=== PATIENT | male | born 1965 | race Caucasian/White ===

== ENCOUNTER 2020-11-10 14:42 | Outpatient (CLI) | payer MEDICARE, SELFPAY ==
--- NOTE | ~2020-11-10 | XR_ITS ---
EXAMINATION: XR knee LT 2V DATE: 11/10/2020 15:19 INDICATION: Left knee pain. TECHNIQUE: 2 views of left knee were obtained. COMPARISON: None. FINDINGS: Bone alignment is normal. No fracture. There is mild osteoarthritis of patellofemoral mario rtment characterized by a tiny marginal osteophyte. No knee joint effusion. IMPRESSION: 1. Mild left knee osteoarthritis. Reviewed, dictated and finalized at location [facility]
== END 2020-11-10 14:43 | disposition home or self-care (01) ==
PROVIDERS: PCP Emergency Medicine; Visit Provider Emergency Medicine
DX: M17.12 Unilateral primary osteoarthritis, left knee (principal)
CPT/HCPCS: 73560

== ENCOUNTER 2022-03-20 12:53 | Emergency (ER) | payer MEDICARE, SELFPAY ==
[2022-03-20 13:12] VITALS: BP 119/69; PULSE 76; RESP 18; TEMP 35.9; O2SAT 96
--- NOTE | 2022-03-20 13:30 | ED.GENADULT ---
HPI - General Adult General Chief complaint: Ear Stated complaint: Lt Ear Pain Source: patient Mode of arrival: ambulatory Limitations: no limitations History of Present Illness HPI narrative: Patient presents for evaluation of left ear pain for the past three days. He states he has had symptoms in the past that were related to an ear infection. He denies drainage from the ear or tinnitus. He states that he has had muffled hearing in the ear. No sore throat, sinus congestion/drainage, fever, chills or respiratory symptoms. He tried putting hydrogen peroxide in the ear and he states that caused worsening pain. No additional complaints or concerns. Related Data Home Medications Medication Instructions Recorded Confirmed cyclobenzaprine 10 mg tablet 10 mg PO BID tablet 11/09/20 fenofibrate 160 mg tablet 160 mg PO DAILY 11/09/20 gabapentin 600 mg tablet See Rx Instructions .ROUTE .COMPLEX 11/09/20 meloxicam 7.5 mg tablet 7.5 mg PO BID tablet 11/09/20 omeprazole 20 mg capsule,delayed See Rx Instructions .ROUTE .COMPLEX 11/09/20 release Allergies Allergy/AdvReac Type Severity Reaction Status Date / Time No Known Allergies Allergy Unverified 10/28/15 11:44 MUSTARD SEED Allergy Unknown Unknown Uncoded 11/09/20 10:31 Review of Systems Review of Systems: CONSTITUTIONAL: Denies fever, chills, or sweats. EYES: Denies visual changes, redness, or discharge. ENT: Reports left sided ear pain with associated muffled hearing. Denies rhinorrhea, congestion, sore throat CARDIOVASCULAR: Denies chest pain, palpitations, or edema. RESPIRATORY: Denies cough or dyspnea. GASTROINTESTINAL: Denies abdominal pain, nausea, vomiting, or diarrhea. GENITOURINARY: Denies dysuria or hematuria. SKIN: Denies rash or itching. MUSCULOSKELETAL: Denies back pain, joint pain, or myalgia. NEUROLOGIC: Denies headache, numbness, dizziness, or weakness. PSYCHIATRIC: Denies anxiety or depression. PENDING SALE TO [facility] Past Medical History Medical History Chronic back pain Flatulence Hay fever Hernia Hyperlipidemia Insomnia Nervousness Sinus problem Surgical History Surgical History H/O foot surgery (~2019) History of hernia surgery (~2017) Family History Family History Father , 66 Cerebrovascular accident Mother No problems noted. Social History Social History Social History: Patient drinks a couple of sodas daily. Smoking packs per day: 1 Smoking cigarettes per day: 20.0 Years smoked: 35 Smoking pack-years: 35.00 Smoking status: Current every day smoker Alcohol intake: current Alcohol use details: Drinks socially Substance use: never Substance use type: does not use Exam Narrative: GENERAL: Well-appearing, well-nourished, and in no acute distress. HEAD: Normocephalic, atraumatic. EYES: PERRLA and EOMI. ENT: Nares clear, no rhinorrhea or epistaxis. Mucous membranes moist. Oropharynx without tonsillar hypertrophy exudate or other lesions. Left ear canal is edematous. There is clear/white exudate in left ear canal. I am unable to visualize TM due to fluid in canal NECK: Supple. No adenopathy or masses. No carotid bruits or JVD CHEST: Clear to auscultation. No respiratory distress. No wheezes rales or rhonchi HEART: Regular rate and rhythm. No murmur heard. Normal peripheral pulses. ABDOMEN: Soft, nontender, nondistended, normal active bowel sounds. EXTREMITIES: Normal range of motion. No edema. SKIN: Warm, dry, no rash. NEURO: No focal deficits. Alert and oriented x3. PSYCH: Normal mood and affect. Course Course Emergency Course: This is a 56-year-old male who present with complaints of left ear pain. On exam his ear canal is edematous. He does appear t
== END 2022-03-20 13:31 | disposition home or self-care (01) ==
PROVIDERS: Emergency Provider Nurse Practitioner; PCP Family Medicine
DX: H66.92 Otitis media, unspecified, left ear (principal); H60.502 Unspecified acute noninfective otitis externa, left ear; F17.210 Nicotine dependence, cigarettes, uncomplicated; E78.5 Hyperlipidemia, unspecified
CPT/HCPCS: 99213; G0463

== ENCOUNTER 2023-11-13 07:12 | Emergency (ER) | payer MEDICARE, SELFPAY ==
--- NOTE | ~2023-11-13 | CT_ITS ---
CT ANGIOGRAM NECK History: Postoperative swelling. Technique: Serial spiral axial images through the head and neck were obtained during arterial phase I V injection of 100 cc of Omnipaque 350. 3-D postprocessing and MIP images were then reconstructed on the remote workstation. Dose reduction technique was used on this scan by utilizing automated exposur e control and iterative reconstruction technique. The dose-length product (DLP) was 556.00 mGy-cm. CTA neck findings: Bilateral vertebral arteries are patent. Bilateral common carotid, internal carot id, external carotid arteries are patent. No large vessel occlusion. No stenosis or aneurysm. The pro ximal right internal carotid artery demonstrates 0% stenosis relative to the normal distal artery lum en diameter. The proximal left internal carotid artery demonstrates 0% stenosis relative to the [place] l distal artery lumen diameter. Moderate to advanced emphysema at the lung apices noted. There is anterior and interbody fusion extending from C3 through C7. There is probable prevertebral/r etropharyngeal swelling, without definite abscess or discrete fluid collection. There is narrowing of the airway in the supraglottic region. Possible small fluid collection just posterior to the esophag us at the thoracic inlet (axial image 57, coronal image 75), measuring 1.7 cm in diameter. Impression: No vascular abnormality seen. Extensive peritoneal/retropharyngeal soft tissue swelling, which may be postoperative in nature given extensive cervical spine fusion hardware present. There is associated narrowing of the airway throug hout the supraglottic region. Possible small fluid collection just posterior to the esophagus at thoracic inlet, as detailed above, nonspecific. Reviewed, dictated and finalized at [facility]. [place] Impression: No vascular abnormality seen. Extensive peritoneal/retropharyngeal soft tissue swelling, which may be postope rative in nature given extensive cervical spine fusion hardware present. There is associated narrowing of the airway throughout the supraglottic region. Possible small fluid collection just posterior to the esophagus at thoracic inl et, as detailed above, nonspecific.
[2023-11-13 07:17] VITALS: BP 128/86; PULSE 113; RESP 18; TEMP 36.4; O2SAT 98
--- NOTE | 2023-11-13 07:29 | ED.GENADULT ---
HPI - General Adult General Chief complaint: Unspecified Stated complaint: neck swelling Time Seen by Provider: 11/13/23 07:20 History of Present Illness HPI narrative: 58-year-old male presenting to the emergency department for evaluation of increased difficulty swallowing over the last few days. Patient did have a cervical spine fusion at [facility] on Monday by Dr. Redd. Patient is on medications for pain control. Patient states over the last few days he has had increased difficulty swallowing pills and this continued to worsen last night Related Data Home Medications Medication Instructions Recorded Confirmed cyclobenzaprine 10 mg tablet 10 mg PO BID 11/09/20 03/20/22 omeprazole 20 mg capsule,delayed 20 mg PO DAILY 11/09/20 03/20/22 release hydrocodone 10 mg-acetaminophen 1 tablet PO PRN PRN Back Pain 03/20/22 03/20/22 325 mg tablet hydroxyzine HCl 25 mg tablet 25 mg PO DAILY 03/20/22 03/20/22 Allergies Allergy/AdvReac Type Severity Reaction Status Date / Time MUSTARD SEED AdvReac Severe Swelling Uncoded 03/20/22 13:44 of Lip/Tongue/Throat Review of Systems Review of Systems: All systems reviewed & are unremarkable except as noted in HPI and below PMFSH Past Medical History Medical History Chronic back pain Flatulence Hay fever Hernia Hyperlipidemia Insomnia Nervousness Sinus problem Surgical History Surgical History H/O foot surgery (~2019) History of hernia surgery (~2017) Family History Family History Father , 66 Cerebrovascular accident Mother No problems noted. Social History Social History Social History: Patient drinks a couple of sodas daily. Smoking packs per day: 1 Smoking cigarettes per day: 20.0 Years smoked: 35 Smoking pack-years: 35.00 Smoking status: Current every day smoker Alcohol intake: current Alcohol use details: Drinks socially Substance use: never Substance use type: does not use Exam Narrative: APPEARANCE: Well appearing, no pain, no distress, well-nourished. HEAD: normocephalic, atraumatic. EYES: PERRLA/EOMI, conjunctivae clear. NOSE: Normal no drainage EARS:TMS clear with good light reflex. THROAT: Change in phonation, handling secretions NECK: Supple. No adenopathy, no masses. RESPIRATORY: Airway patent, respirations nonlabored. Clear to auscultation bilaterally, no rales, rhonchi, wheezing. CARDIOVASCULAR: Regular rate and rhythm without murmurs rubs or gallops. ABDOMINAL: Soft, nontender, nondistended, normal bowel sounds MUSCULOSKELETAL: Moves all extremities. Strength/ROM intact, No edema, No calf tenderness. NEURO: Alert. Cranial nerves II through XII intact. Grossly intact SKIN: Warm, dry. Normal Color Course Course Emergency Course: A 58-year-old male presenting ED for evaluation of increased sore throat difficulty swallowing after her recent cervical spine fusion. CT showed some epiglottic swelling also a posterior esophageal fluid collection of 1.7 cm. Patient does have a leukocytosis of 20.7 but is afebrile. Patient was started on cefepime and vanc in the emergency department. Due to the epiglottic swelling patient was also treated with a dose of IV dexamethasone. Patient was negative for influenza RSV and for COVID. Patient's surgeon at [facility] was updated on the results of the imaging and the surgeon recommended transfer. When discussing the case with the hospitalist at [facility] the hospitalist was not willing to accept the patient without ENT coverage. On re-evaluation the patient still has a rough sounding voice but patient has been able to tolerate some ice chips and states he does feel improved, patient does not f
[2023-11-13 07:42] LABS: Basophils Absolute Auto 0.1 K/mm3 (0.0-0.1); Basophils Percent Auto 0.3 % (0.2-1.2); Eosinophils Absolute Auto 0.2 K/mm3 (0-0.3); Hematocrit 50.6 % (42.0-52.0); Immature Granulocyte Absolute 0.22 K/mm3 (0.00-0.031); Immature Granulocyte Percent A 1.1 % (0-0.5); Lymphocytes Absolute Auto 3.91 K/mm3 (0.9-3.2); Lymphocytes Percent Auto 18.9 % (18.3-44.2); Mean Corpuscular HGB Conc 33.6 g/dl (32-36); Mean Corpuscular Volume 92.3 fl (80-100); Mean Platelet Volume 8.7 fl (7.4-10.4); Monocytes Absolute Auto 1.6 K/mm3 (0.1-0.6); Monocytes Percent Auto 7.9 % (2.6-8.5); Neutrophils Absolute Auto 14.7 K/mm3 (1.3-6.7); Neutrophils Percent Auto 70.8 % (45.5-73.1); Platelet Count Result 277 k/mm3 (150-375); Red Blood Count 5.48 M/mm3 (4.6-6.20); Red Cell Distribution Width 11.6 % (11.5-14.5); White Blood Count 20.7 K/mm3 (4.5-10.0)
[2023-11-13] MEDS: SODIUM CHLORIDE 0.9% IV 1,000 ML 999 ML IV CONT (07:44)
[2023-11-13] MEDS: HYDROmorphone HCL INJ (*CRX) 1 MG/ML SYR 0.5 MG IV PUSH (07:44)
[2023-11-13 07:51] LABS: INR 1.1; Prothrombin Time 14.8 Seconds (11.1-14.7)
[2023-11-13 07:52] LABS: Alanine Aminotransferase 22 U/L (6-50); Albumin Level 4.2 g/dL (3.5-5.1); Alkaline Phosphatase 78 U/L (38-126); Anion Gap 11 mmol/L (8-16); Aspartate Amino Transferase 24 U/L (17-59); Bilirubin,Total 1.3 mg/dL (0.2-1.3); Blood Urea Nitrogen 25 mg/dL (9-20); Calcium 8.9 mg/dL (8.4-10.2); Carbon Dioxide 29 mmol/L (22-30); Chloride 102 mmol/L (98-107); Estimated Glomerular Filt Rate > 60; Glucose 122 mg/dL (65-110); Partial Thromboplastin Time 30.8 SECONDS (22.3-36.8); Potassium 3.2 mmol/L (3.4-5.0); Sodium 142 mmol/L (137-145)
[2023-11-13] MEDS: ceFAZolin 1 GM/NS 50 ML 1 GM/50 ML BAG IVPB (09:27)
[2023-11-13 10:00] LABS: Influenza A QL RT-PCR Negative (Negative); Influenza B QL RT-PCR Negative (Negative); RSV RNA, RT-PCR Negative (Negative); SARS-CoV-2 RNA PCR Negative (Negative)
[2023-11-13] MEDS: VANCOMYCIN 1,250 MG/NS 250 ML 1,250 MG/250 ML BAG 250 MG IVPB (10:07)
[2023-11-13 13:30] VITALS: BP 134/95; PULSE 88; RESP 16; O2SAT 94
[2023-11-13 14:07] LABS: Glucose Point of Care 162 mg/dl (65-105)
== END 2023-11-13 14:45 | disposition short-term general hospital (02) ==
LOC: ANHED 08:24
PROVIDERS: Emergency Provider Emergency Medicine; PCP Family Medicine
DX: K91.89 Other postprocedural complications and disorders of digestive system (principal); R13.10 Dysphagia, unspecified; Z98.1 Arthrodesis status; Z20.822 Contact with and (suspected) exposure to COVID-19; E78.5 Hyperlipidemia, unspecified; F17.210 Nicotine dependence, cigarettes, uncomplicated; R06.02 Shortness of breath
CPT/HCPCS: 36415; 70498; 80053; 82948; 83605; 85025; 85610; 85730; 87040; 87637; 96361; 96365; 96367; 96375; 99285; J0690; J1100; J1170; J3370; J7030; Q9967